=== PATIENT | male | born 1975 | race Hispanic/Latino ===

== ENCOUNTER 2020-01-15 09:47 | Day surgery (SDC) | payer OTHER, SELFPAY ==
--- NOTE | 2020-01-15 | PATH_ITS ---
[facility] Accession Number: [id number] . 01 Material submitted: . esophagus, E-G Junction - GE JUNCTION BIOPSY . 02 Diagnosis: Gastroesophageal Junction, Biopsy: Squamous epithelium with no diagnostic abnormality. Intraepithelial eosinophils are not increased. No proximal gastric type mucosa present for evaluation. Negative for dysplasia or malignancy. [facility] 01/16/2020 1536 Local . 02 Electronically signed: . Layo Echevarria MD, PhD, Pathologist NPI- [id number] . 01 Gross description: . GE JUNCTION BIOPSY: Received in formalin are 3 fragment(s) of chan, soft tissue measuring 0.1 x 0.1 x 0.1 cm to 0.3 x 0.1 x 0.1 cm submitted entirely in 1 cassette(s) /[facility] 01/16/2020 0021 Local . 02 Pathologist provided ICD-10: K21.9 . 02 CPT . 116583 Performed at: 01 [facility] [address], [place], [place] [id number] MD Teo Boo MD Phone: [phone] Performed at: [address] [facility] [address] [place], [place] [id number] MD Madai Keen MD Phone: [phone]
[2020-01-15 10:16] VITALS: BP 118/84; PULSE 90; RESP 14; TEMP 36.8; O2SAT 97; BMI 23.7
[2020-01-15] MEDS: SODIUM CHLORIDE 0.9% 1,000 ML 200 ML IV (10:16)
--- NOTE | 2020-01-15 10:45 | PM.PREOP ---
Pre-operative Note Interval Note History & Physical reviewed/Exam performed by Physician: Yes Changes to H&P: No ASA Class (for procedural sedation): II
--- NOTE | 2020-01-15 11:21 | PM.OP.ENDO ---
Operative Date/Time/Diagnoses Date of procedure: 01/15/20 Time of procedure: 11:21 Pre-op diagnosis: Rectal bleeding, gastroesophageal reflux. Post-op diagnosis: same Procedure & Clinicians Study performed: Colonoscopy, EGD Same procedure as scheduled: Yes Indications: Rectal bleeding, worsening gastroesophageal reflux Surgeon: Leif Villasenor Procedure Notes SCOAP/Timeout: Performed Procedure in detail: Patient placed in left lateral decubitus position. Time out was performed. Procedural sedation was administered with Versed and Fentanyl. A bite block was placed. the scope was inserted into the mouth and advanced through the esophagus and into the stomach. The pylorus was intubated and the duodenum was normal. The scope was retroflexed within the stomach and there was a small hiatal hernia. No ulcers, mild gastritis. The scope was withdrawn into the esophagus the Z line was seen at 35 cm from the incisions. There was no lin's esophagitis or masses or strictures. 4 random biopsies of the Z line were taken with forceps. Stomach was desufflated and scope removed. Patient tolerated procedure well. Patient placed in left lateral decubitus position. Time out was performed. Procedural sedation was administered with Versed and Fentanyl. A rectal exam demonstrated no external hemorrhoids no internal masses. Colonoscopy scope was placed into the rectum and advanced through the colon to the cecum. The ileocecal valve was identified. The scope was then slowly withdrawn examining colon thoroughly in all directions. The colonoscopy was notable for the following 1. No masses or polyps 2. Grade 1 internal hemorrhoids 3. Quality of prep excellent Scope withdrawal time: 6 Sedation minutes: 20 Findings: gastritis and internal hemorrhoids Specimen(s): other (GE junction) Complications: none Impression: Gastritis, grade 1 internal hemorrhoids Post-procedure Recommendations: Colonscopy in 10 years Disposition: same day surgery
[2020-01-15 11:25] VITALS: BP 134/89; PULSE 86; RESP 17; TEMP 36.5; O2SAT 92
[2020-01-15] MEDS: MIDAZOLAM 5 MG/5 ML VIAL IV (11:25)
[2020-01-15] MEDS: fentaNYL 250 MCG/5 ML INJ IV (11:25)
[2020-01-15 11:30] VITALS: BP 125/88; PULSE 18; RESP 23; TEMP 36.6; O2SAT 96
[2020-01-15 11:35] VITALS: BP 142/78; PULSE 95; RESP 16; O2SAT 95
[2020-01-15 11:39] VITALS: BP 136/92; PULSE 87; RESP 17; O2SAT 97
[2020-01-15 11:42] VITALS: BP 140/90; PULSE 87; RESP 20; O2SAT 97
== END 2020-01-15 11:55 | disposition home or self-care (01) ==
PROVIDERS: PCP Internal Medicine; Referring Provider Surgery; Visit Provider Surgery
PROC: 0DJ08ZZ Inspection of Upper Intestinal Tract, Via Natural or Artificial Opening Endoscopic (ICD-10-PCS; CPT 43235; principal; 2020-01-15 10:45)
PROC: 0DJD8ZZ Inspection of Lower Intestinal Tract, Via Natural or Artificial Opening Endoscopic (ICD-10-PCS; CPT 45378; 2020-01-15 10:45)
DX: K62.5 Hemorrhage of anus and rectum (principal); K59.00 Constipation, unspecified; K21.9 Gastro-esophageal reflux disease without esophagitis; K64.0 First degree hemorrhoids; K44.9 Diaphragmatic hernia without obstruction or gangrene; K29.70 Gastritis, unspecified, without bleeding
CPT/HCPCS: 43239; 45378; 99152; J2250; J3010